=== PATIENT | female | born 1975 | race Two or more races ===

== ENCOUNTER 2021-05-24 11:00 | Inpatient (IN) | payer OTHER ==
[~2021-05-24] VITALS: Ht 162.6 cm; Wt 76.7 kg
[2021-05-29] MEDS ORDERED: FERROUS SU220 MG/52 (16:26)
[2021-05-29] MEDS ORDERED: WAL-TUSSIN DM118 M1 (16:26)
== END 2021-05-31 11:09 | disposition home or self-care (01) | DRG 743 ==
LOC: OB/GYN 05-29 07:00 → O/R 05-29 10:05 → OB/GYN 05-29 10:05
PROVIDERS: ADMIT Specialist; ATTEND Specialist
PROC: 0UB70ZZ Excision of Bilateral Fallopian Tubes, Open Approach (ICD-10-PCS; 2021-05-29)
PROC: 0UT90ZZ Resection of Uterus, Open Approach (ICD-10-PCS; principal; 2021-05-29 07:00)
DX: D25.1 Intramural leiomyoma of uterus (principal); D25.2 Subserosal leiomyoma of uterus